=== PATIENT | female | born 1950 | race Caucasian/White ===

== ENCOUNTER 2019-02-26 09:37 | Emergency (ER) | payer MEDICARE, OTHER ==
--- NOTE | 2019-02-26 10:39 | RAD ---
EXAM: XR Shoulder Lt 3 View STANDARD PROVIDED CLINICAL HISTORY: Left shoulder pain COMPARISON: None FINDINGS: No evidence for fracture. Amorphous mineralization adjacent to the greater tuberosity compatible with calcific peritendinitis. Glenohumeral relationship appears normal. Subacromial space appears preserved. Visualized left lung field appears clear. Mild acromioclavicular joint degenerative change . IMPRESSION: Calcific peritendinitis.
[2019-02-26] MEDS ORDERED: traMADol HCl 50 MG TAB ONE (10:42)
[2019-02-26] MEDS ORDERED: Ketorolac Tromethamine 30 MG/ML VIAL ONE (10:42)
== END 2019-02-26 11:06 | disposition home or self-care (01) ==
LOC: NAV ERS 09:37
DX: S43.402A Unspecified sprain of left shoulder joint, initial encounter (principal); X50.0XXA Overexertion from strenuous movement or load, initial encounter
CPT/HCPCS: 96372; J1885